=== PATIENT | female | born 1970 | race Hispanic/Latino ===

== ENCOUNTER 2021-04-27 14:42 | Emergency (ER) | payer OTHER ==
[~2021-04-27] VITALS: Ht 154.9 cm; Wt 76.2 kg
[2021-04-27] MEDS ORDERED: CORGARD20 MG PO (15:02)
[2021-04-27] MEDS ORDERED: CLONIDINE HCL0.1 M1 PO (15:02)
[2021-04-27] MEDS ORDERED: LISINOPRIL5 MG PO (16:58)
--- OUTSIDE RECORDS SUMMARY | 2021-04-27 17:30 | XMS ---
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 EBrent VISIT COUNT (12 MO.) [address] [place] [address] TOTAL 5 NOTE: Visits indicate total known visits. ED/UCC VISIT TRACKING (12 MO.) 04/27/2021 14:43 [facility] TYPE: Emergency COMPLAINT: - HIGH BP 04/12/2021 21:02 [facility] [place] TYPE: Emergency DIAGNOSES: - HTN - Essential (primary) hypertension 04/11/2021 17:23 [facility] [place] TYPE: Emergency DIAGNOSES: - R FOOT INJ - Sprain of unspecified ligament of right ankle, initial encounter 11/10/2020 16:45 [facility] [place] TYPE: Emergency DIAGNOSES: - DIZZINESS - Chest pain, unspecified 05/07/2020 16:56 [facility] [place] TYPE: Emergency DIAGNOSES: - Essential (primary) hypertension - HIGH BLOOD PRESSURE INPATIENT VISIT TRACKING (12 MO.) No inpatient visits to display in this time frame [email or web address]
== END 2021-04-27 17:10 | disposition home or self-care (01) ==
LOC: ED 14:42
DX: I10 Essential (primary) hypertension (principal); Z86.73 Personal history of transient ischemic attack (TIA), and cerebral infarction without residual deficits; Z79.899 Other long term (current) drug therapy
CPT/HCPCS: 80053; 85025; 99283